=== PATIENT | male | born 1980 | race Caucasian/White ===

== ENCOUNTER 2016-07-31 10:50 | Inpatient (IN) | payer OTHER ==
[2016-07-31 11:23] VITALS: BMI 32.8
--- NOTE | 2016-07-31 13:48 | HP ---
COWS - Scale Resting Pulse: 1= OR 81-100 Sweatin= Chills/Flushing Restless Observation: 3= Extraneous Movement Pupil Size: 2= Moderately Dilated Bone or Joint Aches: 4=Acute Joint/Muscle Pain Runny Nose/ Eye Tearin= Runny Nose/Eyes GI Upset > 30mins: 2= Nausea/Diarrhea Tremor Observation: 2= Slight Tremor Visible Yawning Observation: 2= >3x During Session Anxiety or Irritability: 1=Feels Anxious/Irritable Goose Flesh Skin: 0=Smooth Skin COWS Score: 20 Admission [facility] Chief Complaint: DETOX TX FOR HEROIN DEPENDENCE Allergies/Adverse Reactions: Allergies Allergy/AdvReac Type Severity Reaction Status Date / Time iodine Allergy Intermediate Difficulty Verified 01/24/16 13:44 Breathing shellfish derived Allergy Intermediate Difficulty Verified 07/31/16 13:14 Breathing Iodine Allergy Intermediate Difficulty Uncoded 01/24/16 13:44 Breathing History of Present Illness: 36 Y/O MALE WITH A HX OF HEROIN AND MARIJUANA DEPENDENCE SEEKING DETOX TX. PT STATES HE IS ON RX VALIUM 10 MG TID AND DENIES ABUSE. ALSO TAKES LAMICTAL AND AMBIEN(FOR SLEEP). Exam Limitations: No Limitations - Ebola screening Have you traveled outside of the country in the last 21 days: No Have you had contact with anyone from an Ebola affected area: No Have you been sick,other than usual withdrawal symptoms: No Do you have a fever: No - Review of Systems Constitutional: Chills, Night Sweats, Changes in sleep EENT: reports: Blurred Vision (WEARS GLASSES), Tearing, Nose Congestion, Dental Problems (CAVITIES IN THE PAST) Respiratory: reports: No Symptoms reported Cardiac: reports: No Symptoms Reported GI: reports: Diarrhea, Nausea, Vomiting : reports: No Symptoms Reported Musculoskeletal: reports: Back Pain, Joint Pain, Muscle Pain Integumentary: reports: Bruising (DUE TO IVDU ON BOTH INNER ELBOWS) Neuro: reports: No Symptoms reported Endocrine: reports: No Symptoms Reported Hematology: reports: No Symptoms Reported Psychiatric: reports: Orientated x3, Anxious, Depressed (ON MED FOR DEPRESSION) Other Systems: Reviewed and Negative Patient History - Patient Medical History Hx Anemia: No Hx Asthma: No Hx Chronic Obstructive Pulmonary Disease (COPD): No Hx Cancer: No Hx Cardiac Disorders: No Hx Congestive Heart Failure: No Hx Hypertension: No Hx Hypercholesterolemia: No Hx Pacemaker: No HX Cerebrovascular Accident: No Hx Seizures: No Hx Diabetes: No Hx Gastrointestinal Disorders: No Hx Liver Disease: No Hx Genitourinary Disorders: No Hx Sexually Transmitted Disorders: No Hx Renal Disease (ESRD): No Hx Thyroid Disease: No Hx Human Immunodeficiency Virus (HIV): No (negative) Hx Hepatitis C: No Hx Depression: Yes (ON MED) Hx Suicide Attempt: No (DENIES) Hx Bipolar Disorder: No Hx Schizophrenia: No Other Medical History: INSOMNIA - Patient Surgical History Past Surgical History: Yes Hx Neurologic Surgery: No Hx Cataract Extraction: No Hx Cardiac Surgery: No Hx Lung Surgery: No Hx Breast Surgery: No Hx Breast Biopsy: No Hx Abdominal Surgery: No Hx Appendectomy: No Hx Cholecystectomy: Yes (2008) Hx Genitourinary Surgery: No Hx Section: No Hx Orthopedic Surgery: Yes (spinal fusion 2009) Anesthesia Reaction: No - PPD History Previous Implant?: Yes Documented Results: Negative w/o proof Implanted On Prior R Admission?: Yes Date: 01/26/16 (NOT READ) Results: TO BE DONE PPD to be Administered?: Yes - Reproductive History Patient is a Female of Child Bearing Age (11 -55 yrs old): No (MALE) - Smoking Cessation Smoking history: Current every day smoker Have you smoked in the past 12 months: Yes Aproximately how many cigarettes per day: 10 Hx Chewing Tobacco Use: No Initiated information on smoking cessation: Yes 'Breaking Loose' booklet given: 07/31/16 - Substance & Tx. History Hx Alcohol Use: No (DENIES) Hx Substance Use: Yes (HEROIN/MARIJUANA) Substance Use Type: Heroin, Marijuana, Tranquilizers (RX--DENIES ABUSING IT.) Hx Substance Use Treatment: Yes ([facility]-DETOX) - Substances Abused Heroin Route: Injection Frequency: Daily Amount used: 15 BAGS Age of first use: 24 Date of Last Use: 07/31/16 Marijuana/Hashish Route: Smoking Frequency: 1-3 times last 30 days Amount used: EIGHTH OF WEED Age of first use: 14 Date of Last Use: 07/17/16 VALIUM Route: Oral Frequency: Daily Amount used: 30MG Age of first use: 35 Date of Last Use: 07/31/16 Family Disease History - Family Disease History Family Disease History: Heart Disease: Father, [place]: Grandparent (alcohol abuse and dependence), Other: Grandparent Admission Physical Exam [facility] - Vital Signs Vital Signs: Vital Signs - 24 hr 07/31/16 11:21 Temperature 97.1 F L Pulse Rate 87 Respiratory 18 Rate Blood Pressure 122/73 - Physical General Appearance: Yes: Moderate Distress, Irritable, Anxious HEENTM: Yes: EOMI, Normocephalic, GALA, Pharynx Normal Respiratory: Yes: Chest Non-Tender, Lungs Clear, Normal Breath Sounds, No Respiratory Distress Neck: Yes: Supple, Trachea in good position Breast: Yes: Breast Exam Deferred Cardiology: Yes: Regular Rhythm, Regular Rate, S1, S2 Abdominal: Yes: Normal Bowel Sounds, Non Tender, Soft, Protuberent Genitourinary: Yes: Other Back: Yes: Within Normal Limits Musculoskeletal: Yes: full range of Motion, Gait Steady Extremities: Yes: Normal Range of Motion, Non-Tender Neurological: Yes: district director II-XII NML intact, Fully Oriented, Alert Integumentary: Yes: Dry, Warm, Track [place] (BOTH ANTECUBITAL SPACE) Lymphatic: Yes: Within Normal Limits - Diagnostic (1) Lower back pain Current Visit: Yes Status: Chronic Qualifiers: Chronicity: unspecified Back pain laterality: unspecified (2) Nicotine dependence Current Visit: Yes Status: Chronic Qualifiers: Nicotine product type: cigarettes Substance use status: uncomplicated Qualified Code(s): F17.210 - Nicotine dependence, cigarettes, uncomplicated (3) Opioid dependence with withdrawal Current Visit: Yes Status: Acute (4) Cannabis dependence, uncomplicated Current Visit: Yes Status: Acute (5) Sedative, hypnotic or anxiolytic dependence with withdrawal, uncomplicated Current Visit: Yes Status: Acute Cleared for Admission [facility] - Detox or Rehab [facility] Level of Care: Medically Managed Detox Regimen/Protocol: Methadone/Valium [facility] Breath Alcohol Content Breath Alcohol Content: 0 Urine Drug Screen - Results Drug Screen Negative: No Urine Drug Screen Results: THC-Marijuana, OPI-Opiates, MDMA-Ecstasy, BZO- Benzodiazepines, OXY-Oxycodone
[2016-07-31] MEDS ORDERED: MAG HYDROX/AL HYDROX/SIMETH 30 ML UNIT-DOSE CUP PO PRN (14:00)
[2016-07-31] MEDS ORDERED: P-EPHED 60MG/TRIPROLIDI 2.5MG TABLET PO PRN (14:00)
[2016-07-31] MEDS ORDERED: guaiFENesin/D-METHORPHAN HB 10 ML UNIT-DOSE CUPS PO PRN (14:00)
[2016-07-31] MEDS ORDERED: MAGNESIUM HYDROX 2400MG/30ML ORAL SUSPENSION 30 ML CUP PO PRN (14:00)
[2016-07-31] MEDS ORDERED: diphenhydrAMINE HCL 50 MG CAPSULE PO PRN (14:00)
[2016-07-31] MEDS ORDERED: MENTHOL/PHENOL 1 EACH UD MM PRN (14:00)
[2016-07-31] MEDS ORDERED: IBUPROFEN 400 MG TABLET (FP) PO PRN (14:00)
[2016-07-31] MEDS ORDERED: MAGNESIUM CITRATE 300 ML BOTTLE PO PRN (14:00)
[2016-07-31] MEDS ORDERED: hydrOXYzine PAMOATE 25 MG CAPSULE (FP) PO PRN (14:00)
[2016-07-31] MEDS ORDERED: NICOTINE POLACRILEX 2 MG GUM BUC PRN (14:00)
[2016-07-31] MEDS ORDERED: LOPERAMIDE HCL 2 MG CAPSULE PO PRN (14:00)
[2016-07-31] MEDS ORDERED: ACETAMINOPHEN 325 MG TABLET (FP) PO PRN (14:00)
[2016-07-31] MEDS ORDERED: diazePAM 5 MG TABLET PO ONE (15:17)
[2016-07-31] MEDS ORDERED: METHADONE HCL 10 MG TABLET (FOR DETOX USE ONLY) PO ONE ×2 (15:18→23:00)
[2016-07-31] MEDS: NICOTINE 14 MG/24 HOURS TOPICAL PATCH TD SCH (15:52)
[2016-07-31] MEDS: diazePAM 5 MG TABLET PO SCH ×2 (15:52→22:24)
[2016-07-31] MEDS: diazePAM 5 MG TABLET PO PRN (20:50)
[2016-07-31 20:54] LABS: URINE APPEARANCE CLEAR; URINE BILIRUBIN NEGATIVE (NEGATIVE); URINE BLOOD NEGATIVE (NEGATIVE); URINE COLOR LTYELLOW; URINE GLUCOSE (UA) NEGATIVE (NEGATIVE); URINE KETONE NEGATIVE (NEGATIVE); URINE LEUK ESTERASE NEGATIVE (NEGATIVE); URINE NITRITE NEGATIVE (NEGATIVE); URINE PROTEIN NEGATIVE (NEGATIVE); URINE UROBILINOGEN NEGATIVE E.U./dl (0.2-1.0)
[2016-07-31] MEDS ORDERED: THIAMINE HCL 100 MG TABLET (FP) PO SCH (22:00)
[2016-08-01] MEDS: diazePAM 5 MG TABLET PO SCH (05:34)
[2016-08-01] MEDS: diazePAM 5 MG TABLET PO PRN (09:13)
[2016-08-01] MEDS ORDERED: METHADONE HCL 10 MG TABLET (FOR DETOX USE ONLY) PO SCH (10:00)
[2016-08-01] MEDS ORDERED: PRENATAL VITAMINS W/ FOLIC ACID TABLET (FP) PO SCH (10:00)
[2016-08-01 10:04] VITALS: BP 123/68; PULSE 74; TEMP 97.9
[2016-08-01 10:35] LABS: MCH 30.9 pg (25.7-33.7); MCHC 34.4 g/dl (32.0-35.9); MEAN CELL VOLUME 89.7 fl (80-96); MEAN PLT VOLUME 8.5 fl (7.5-11.1); PLATELET COUNT 198 K/MM3 (134-434); RDW 13.2 % (11.9-15.9); WHITE BLOOD COUNT 8.1 K/mm3 (4.0-10.0)
[2016-08-01 10:39] LABS: ALBUMIN 4.2 g/dl (3.4-5.0); ALK PHOS 86 U/L (45-117); ANION GAP 7 (8-16); BILIRUBIN,TOTAL 0.2 mg/dL (0.2-1.0); CO2 28 mmol/L (21-32); CREATININE 0.9 mg/dL (0.7-1.3); GLUCOSE,RANDOM 91 mg/dL (74-106); SGOT/AST 14 U/L (15-37); SGPT/ALT 27 U/L (12-78); TOT PROT 7.3 g/dl (6.4-8.2)
[2016-08-01] MEDS: NICOTINE 14 MG/24 HOURS TOPICAL PATCH TD SCH (10:43)
--- NOTE | 2016-08-01 11:51 | EKG ---
Test Reason : Blood Pressure : / mmHG Vent. Rate : 069 BPM Atrial Rate : 069 BPM P-R Int : 184 ms QRS Dur : 098 ms QT Int : 382 ms P-R-T Axes : 052 032 009 degrees QTc Int : 409 ms NORMAL SINUS RHYTHM NORMAL ECG NO PREVIOUS ECGS AVAILABLE Confirmed by JOSE GUADALUPE CONNOR, WILLI ([id number]) on 08/01/2016 11:51:00 AM Referred By: Nick CHOWDHURY Confirmed By:WILLI SHI MD
--- NOTE | 2016-08-01 12:38 | DS ---
[facility] Detox Discharge Summary Admission Date: 07/31/16 Discharge Date: 08/01/16 - History Present History: Cannabis Dependence, Opioid Dependence, Sedative Dependence - Physical Exam Results Vital Signs: Vital Signs Temperature 97.9 F 08/01/16 10:04 Pulse Rate 74 08/01/16 10:04 Respiratory Rate 16 08/01/16 10:04 Blood Pressure 123/68 08/01/16 10:04 O2 Sat by Pulse Oximetry (%) - Treatment Hospital Course: Detox Protocol Followed - Medication Discharge Medications: Ambulatory Orders Lamotrigine [Lamictal -] 200 mg PO DAILY 01/24/16 Zolpidem Tartrate [Ambien] 10 mg PO HS 07/31/16 - Diagnosis (1) Cannabis dependence, uncomplicated Current Visit: Yes Status: Chronic (2) Opioid dependence with withdrawal Current Visit: Yes Status: Chronic (3) Sedative, hypnotic or anxiolytic dependence with withdrawal, uncomplicated Current Visit: Yes Status: Chronic (4) Lower back pain Current Visit: Yes Status: Chronic Qualifiers: Chronicity: unspecified Back pain laterality: unspecified (5) Nicotine dependence Current Visit: Yes Status: Chronic Qualifiers: Nicotine product type: cigarettes Substance use status: uncomplicated Qualified Code(s): F17.210 - Nicotine dependence, cigarettes, uncomplicated - AMA Did Patient Leave Against Medical Advice: Yes (pt wants to leave doesn't want detox -feels good.)
[2016-08-02] MEDS ORDERED: diazePAM 5 MG TABLET PO SCH (10:00)
[2016-08-02] MEDS ORDERED: METHADONE HCL 5 MG TABLET (FOR DETOX USE ONLY) PO SCH (10:00)
[2016-08-04] MEDS ORDERED: METHADONE HCL 10 MG TABLET (FOR DETOX USE ONLY) PO SCH (10:00)
[2016-08-04] MEDS ORDERED: diazePAM 5 MG TABLET PO SCH (10:00)
[2016-08-05] MEDS ORDERED: METHADONE HCL 5 MG TABLET (FOR DETOX USE ONLY) PO SCH (06:00)
== END 2016-08-01 13:00 | disposition left against medical advice (07) | DRG 894 ==
LOC: YASAS 10:50 → Y6N 15:11
PROVIDERS: ADMIT Internal Medicine Addiction Medicine; ATTEND Internal Medicine Addiction Medicine
PROC: HZ2ZZZZ Detoxification Services for Substance Abuse Treatment (ICD-10-PCS; principal; 2016-07-31)
DX: F11.23 Opioid dependence with withdrawal (principal); F13.230 Sedative, hypnotic or anxiolytic dependence with withdrawal, uncomplicated; F12.20 Cannabis dependence, uncomplicated; F17.210 Nicotine dependence, cigarettes, uncomplicated; M54.5 Low back pain; G47.00 Insomnia, unspecified
CPT/HCPCS: 36415; 80053; 81003; 85027; 86593; 93005; 93010

== ENCOUNTER 2017-08-28 18:57 | Observation (INO) | payer OTHER ==
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
[2017-08-28 19:35] VITALS: TEMP 99; BMI 22.5
[2017-08-28 21:23] LABS: BASO % 0.4 % (0-2.0); EOS % 0.9 % (0-4.5); HEMOGLOBIN 14.4 GM/dL (11.7-16.9); LYMPH % 21.5 % (8-40); MCH 28.9 pg (25.7-33.7); MCHC 33.6 g/dl (32.0-35.9); MEAN CELL VOLUME 85.9 fl (80-96); MONO % 9.1 % (3.8-10.2); NEUT % 68.1 % (42.8-82.8); PLATELET COUNT 356 K/MM3 (134-434); RDW 13.8 % (11.9-15.9); WHITE BLOOD COUNT 13.9 K/mm3 (4.0-10.0)
[2017-08-28 21:37] LABS: INR 1.21 (0.82-1.09); PROTHROMBIN TIME (PATIENT) 13.7 SEC (9.98-11.88)
[2017-08-28 22:06] LABS: ALBUMIN 4.4 g/dl (3.4-5.0); ANION GAP 10 (8-16); BILIRUBIN,TOTAL 0.9 mg/dL (0.2-1.0); BLOOD UREA NITROGEN 11 mg/dL (7-18); CALCIUM 9.5 mg/dL (8.5-10.1); CHLORIDE 107 mmol/L (98-107); CO2 22 mmol/L (21-32); CREATININE 0.9 mg/dL (0.7-1.3); GLUCOSE,RANDOM 139 mg/dL (74-106); POTASSIUM 3.8 mmol/L (3.5-5.1); SGOT/AST 56 U/L (15-37); SGPT/ALT 113 U/L (12-78); SODIUM 139 mmol/L (136-145); TOT PROT 8.7 g/dl (6.4-8.2)
[2017-08-28 22:08] LABS: ALK PHOS 115 U/L (45-117)
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
[2017-08-28] MEDS ORDERED: PIPERACILLIN/TAZOB 4.5 GM/100 ML PREMIX BAG IVPB ONE (23:35)
[2017-08-28] MEDS ORDERED: PIPERACILLIN/TAZOB 4.5 GM 4.5 GM in DEXTROSE 5%-WATER - 100 ML IVPB ONE (23:45)
[2017-08-29] MEDS ORDERED: VANCOMYCIN 1,000 MG in DEXTROSE 5%-WATER - 250 ML IVPB ONE (00:35)
[2017-08-29] MEDS ORDERED: PIPERACILLIN/TAZOB 4.5 GM 4.5 GM/100 ML BAG IVPB ONE (00:38)
[2017-08-29] MEDS ORDERED: diphenhydrAMINE HCL 25 MG CAPSULE (FP) PO ONE ×2 (01:25→01:30)
[2017-08-29] MEDS ORDERED: ACETAMINOPHEN 325 MG TABLET (FP) PO PRN (01:42)
--- NOTE | 2017-08-29 01:50 | PN ---
Teaching Attending Note Name of Resident: Marshall Garibay ATTENDING PHYSICIAN STATEMENT I saw and evaluated the patient. I reviewed the resident's note and discussed the case with the resident. I agree with the resident's findings and plan as documented. SUBJECTIVE:pt signed out AMA prior to my assessment
[2017-08-29] MEDS ORDERED: chlordiazePOXIDE HCL 25 MG CAPSULE PO PRN (01:59)
[2017-08-29] MEDS ORDERED: METHADONE HCL 10 MG TABLET PO ONE ×2 (01:59→22:00)
--- NOTE | 2017-08-29 02:30 | HP ---
CHIEF COMPLAINT: Pain, redness and swelling of both upper extremities PCP: Dr. SUÁREZ HISTORY OF PRESENT ILLNESS: Patient is a 37 yo m w/ PMH IVDA (5 bags of heroin per day, last use ~1.5 weeks ago) who comes into the ED c/o b/l arm pain and swelling for the past 1 day. Patient states that he went into [facility] for detox, then left due to a family emergency. Later on today, at approx. 6pm, the patient states he noticed redness , swelling and pain in both of his arms b/l with the right being worse than the left. Patient also c/o nausea. Patient expresses to desire to be discharged to detox at [facility]. Patient denies CP, SOB, fevers, chills, abdominal pain, diarrhea, constipation ER course was notable for: (1) Vancomycin x1, zosyn x1 (2) US of both UE negative for DVT (3) XR of both arms negative for foreign body Recent Travel: none PAST MEDICAL HISTORY: none PAST SURGICAL HISTORY: spinal fusion in 2009 Social History: Smokin-2 cigarettes per week Alcohol: denies Drugs: Heroin use, injected. Pt uses 5 bags per day Family History: non contributory Allergies iodine Allergy (Intermediate, Verified 08/28/17 19:30) Difficulty Breathing shellfish derived Allergy (Intermediate, Verified 08/28/17 19:30) Difficulty Breathing Iodine Allergy (Intermediate, Uncoded 01/24/16 13:44) Difficulty Breathing HOME MEDICATIONS: Home Medications Medication Instructions Recorded NK [No Known Home Medication] 08/28/17 REVIEW OF SYSTEMS CONSTITUTIONAL: Absent: fever, chills, diaphoresis, generalized weakness, malaise, loss of appetite, weight change HEENT: Absent: rhinorrhea, nasal congestion, throat pain, throat swelling, difficulty swallowing, mouth swelling, ear pain, eye pain, visual changes CARDIOVASCULAR: Absent: chest pain, syncope, palpitations, irregular heart rate, lightheadedness , peripheral edema RESPIRATORY: Absent: cough, shortness of breath, dyspnea with exertion, orthopnea, wheezing, stridor, hemoptysis GASTROINTESTINAL: Absent: abdominal pain, abdominal distension, nausea, vomiting, diarrhea, constipation, melena, hematochezia GENITOURINARY: Absent: dysuria, frequency, urgency, hesitancy, hematuria, flank pain, genital pain MUSCULOSKELETAL: Absent: myalgia, arthralgia, joint swelling, back pain, neck pain SKIN: Absent: itching, pallor HEMATOLOGIC/IMMUNOLOGIC: Absent: easy bleeding, easy bruising, lymphadenopathy, frequent infections ENDOCRINE: Absent: unexplained weight gain, unexplained weight loss, heat intolerance, cold intolerance NEUROLOGIC: Absent: headache, focal weakness or paresthesias, dizziness, unsteady gait, seizure, mental status changes, bladder or bowel incontinence PSYCHIATRIC: Absent: anxiety, depression, suicidal or homicidal ideation, hallucinations. PHYSICAL EXAMINATION Vital Signs - 24 hr 08/28/17 19:31 Temperature 99.0 F Pulse Rate 99 H Respiratory 20 Rate Blood Pressure 0/0 O2 Sat by Pulse 100 Oximetry (%) GENERAL: Awake, alert, and fully oriented. Patient appears diaphoretic with mild psychomotor agitation HEAD: Normal with no signs of trauma. EYES: Pupils equal, round and reactive to light, pupils dilated. LUNGS: Breath sounds equal, clear to auscultation bilaterally. No wheezes, and no crackles. No accessory muscle use. HEART: Regular rate and rhythm, normal S1 and S2 without murmur, rub or gallop. ABDOMEN: Soft, nontender, not distended, normoactive bowel sounds, no guarding, no rebound, no masses. No hepatomegaly or splenomegaly. MUSCULOSKELETAL: Normal range of motion at all joints. No bony deformities or tenderness. No CVA tenderness. UPPER EXTREMITIES: 2+ pulses, warm, well-perfused. No cyanosis. No clubbing. No peripheral edema. LOWER EXTREMITIES: 2+ pulses, warm, well-perfused. No calf tenderness. No peripheral edema. NEUROLOGICAL: Cranial nerves II-X intact. Normal speech. PSYCHIATRIC: Cooperative. minimal eye contact. Appropriate mood and affect. SKIN: Multiple erythematous, swollen lesions over both upper extremities. Lesions tender to palpation, warm to the touch and indurated Laboratory Results - last 24 hr 08/28/17 08/28/17 08/28/17 21:06 21:06 21:09 WBC 13.9 H D RBC 5.00 Hgb 14.4 Hct 43.0 MCV 85.9 MCH 28.9 MCHC 33.6 RDW 13.8 Plt Count 356 D MPV 8.0 Neutrophils % 68.1 Lymphocytes % 21.5 Monocytes % 9.1 Eosinophils % 0.9 Basophils % 0.4 ESR PT with INR INR D-Dimer Sodium 139 Potassium 3.8 Chloride 107 Carbon Dioxide 22 D Anion Gap 10 BUN 11 Creatinine 0.9 Creat Clearance w eGFR > 60 Random Glucose 139 H D Lactic Acid 2.0 Calcium 9.5 Total Bilirubin 0.9 D AST 56 H D ALT 113 H D Alkaline Phosphatase 115 D Total Protein 8.7 H Albumin 4.4 08/28/17 08/28/17 08/28/17 21:09 21:09 21:09 WBC RBC Hgb Hct MCV MCH MCHC RDW Plt Count MPV Neutrophils % Lymphocytes % Monocytes % Eosinophils % Basophils % ESR 53 H PT with INR 13.70 H INR 1.21 H D-Dimer 1152 H Sodium Potassium Chloride Carbon Dioxide Anion Gap BUN Creatinine Creat Clearance w eGFR Random Glucose Lactic Acid Calcium Total Bilirubin AST ALT Alkaline Phosphatase Total Protein Albumin ASSESSMENT/PLAN: The patient is a 37 yo m w/ PMH IVDA being admitted for b/l UE cellulitis and abscesses. #UE Cellulitis/abscess -s/p vancomycin, zosyn in ED -vancomycin 1250mg daily -zosyn 3.375 Q6H -ID consult #Heroin dependence -Utox -Detox consult -methadone detox protocol -monitor for signs of withdrawal -COWS score 6 #FEN -no fluids indicated -lytes wnl -regular diet #dispo -admit to med-surg Visit type - Emergency Visit Emergency Visit: Yes Care time: The patient presented to the Emergency Department on the above date and was hospitalized for further evaluation of their emergent condition. - New Patient This patient is new to me today: Yes Date on this admission: 08/29/17 - Critical Care Critical Care patient: No
[2017-08-29] MEDS ORDERED: PIPERACILLIN/TAZOB 3.375 GM 3.375 GM/50 ML BAG IVPB ONE (05:35)
[2017-08-29] MEDS ORDERED: PIPERACILLIN/TAZOB 3.375 GM 3.375 GM in DEXTROSE 5%-WATER - 50 ML IVPB ONE (06:00)
--- NOTE | 2017-08-29 06:25 | HOSP ---
Subjective - Review of Symptoms Subjective: Was paged to the bedside by the nurse because the patient wished to sign out AMA. Explained to the patient the potential risks of leaving including permanent injuries, worsening of his infection, migration of his infection into the bone, possible amputation of the arm as well as possible due to worsening infection. Patient verbalized understanding of the risks of signing out and still wanted to leave. Will send PO ABX to the patient's pharmacy and encouraged him to take them. Physical Examination Vital Signs: Vital Signs Temperature 99.0 F 08/28/17 19:31 Pulse Rate 99 H 08/28/17 19:31 Respiratory Rate 20 08/28/17 19:31 Blood Pressure 0/0 08/28/17 19:31 O2 Sat by Pulse Oximetry (%) 100 08/28/17 19:31 Labs: CBC, BMP 08/28/17 21:06 08/28/17 21:09 Visit type - Emergency Visit Emergency Visit: Yes ED Registration Date: 08/29/17 Care time: The patient presented to the Emergency Department on the above date and was hospitalized for further evaluation of their emergent condition. - New Patient This patient is new to me today: Yes Date on this admission: 08/29/17 - Critical Care Critical Care patient: No
[2017-08-29 06:32] VITALS: BP 124/83; PULSE 90
[2017-08-29 07:12] LABS: EOS % 1.4 % (0-4.5); HEMATOCRIT 41.9 % (35.4-49); LYMPH % 20.4 % (8-40); MCH 28.5 pg (25.7-33.7); MCHC 33.3 g/dl (32.0-35.9); MEAN CELL VOLUME 85.6 fl (80-96); MEAN PLT VOLUME 8.5 fl (7.5-11.1); MONO % 11.2 % (3.8-10.2); PLATELET COUNT 339 K/MM3 (134-434); RBC 4.89 M/mm3 (4.00-5.60); WHITE BLOOD COUNT 13.1 K/mm3 (4.0-10.0)
--- NOTE | 2017-08-29 08:24 | PN ---
Teaching Attending Note Name of Resident: Jasbir Fernandez ATTENDING PHYSICIAN STATEMENT I saw and evaluated the patient. I reviewed the resident's note and discussed the case with the resident. I agree with the resident's findings and plan as documented. SUBJECTIVE: OBJECTIVE: Vital Signs Temperature 99.0 F 08/28/17 19:31 Pulse Rate 90 08/29/17 06:32 Respiratory Rate 16 08/29/17 06:32 Blood Pressure 124/83 08/29/17 06:32 O2 Sat by Pulse Oximetry (%) 99 08/29/17 06:32 CBCD WBC 13.1 K/mm3 (4.0-10.0) H 08/29/17 06:00 RBC 4.89 M/mm3 (4.00-5.60) 08/29/17 06:00 Hgb 14.0 GM/dL (11.7-16.9) 08/29/17 06:00 Hct 41.9 % (35.4-49) 08/29/17 06:00 MCV 85.6 fl (80-96) 08/29/17 06:00 MCHC 33.3 g/dl (32.0-35.9) 08/29/17 06:00 RDW 14.0 % (11.9-15.9) 08/29/17 06:00 Plt Count 339 K/MM3 (134-434) 08/29/17 06:00 MPV 8.5 fl (7.5-11.1) 08/29/17 06:00 CMP Sodium 139 mmol/L (136-145) 08/28/17 21:09 Potassium 3.8 mmol/L (3.5-5.1) 08/28/17 21:09 Chloride 107 mmol/L (98-107) 08/28/17 21:09 Carbon Dioxide 22 mmol/L (21-32) D 08/28/17 21:09 Anion Gap 10 (8-16) 08/28/17 21:09 BUN 11 mg/dL (7-18) 08/28/17 21:09 Creatinine 0.9 mg/dL (0.7-1.3) 08/28/17 21:09 Creat Clearance w eGFR > 60 (>60) 08/28/17 21:09 Random Glucose 139 mg/dL (74-106) H D 08/28/17 21:09 Calcium 9.5 mg/dL (8.5-10.1) 08/28/17 21:09 Total Bilirubin 0.9 mg/dL (0.2-1.0) D 08/28/17 21:09 AST 56 U/L (15-37) H D 08/28/17 21:09 ALT 113 U/L (12-78) H D 08/28/17 21:09 Alkaline Phosphatase 115 U/L (45-117) D 08/28/17 21:09 Total Protein 8.7 g/dl (6.4-8.2) H 08/28/17 21:09 Albumin 4.4 g/dl (3.4-5.0) 08/28/17 21:09 Current Medications Generic Name Dose Route Start Last Admin Trade Name Freq PRN Reason Stop Dose Admin Acetaminophen 650 mg 08/29/17 01:42 Tylenol - PO Q4H PRN PAIN OR FEVER Chlordiazepoxide HCl 25 mg 08/29/17 01:59 Librium - PO 09/01/17 02:00 Q4H PRN WITHDRAWAL(CONT SUBST) Vancomycin HCl 1,250 mg/ 250 mls @ 250 mls/hr 08/29/17 12:00 Dextrose IVPB DAILY [facility] Protocol Piperacillin Sod/Tazobactam 50 mls @ 100 mls/hr 08/29/17 15:00 Sod 3.375 gm/ Dextrose IVPB Q6H-IV NAUN Protocol Methadone HCl 10 mg 08/29/17 22:00 Dolophine - PO 08/29/17 22:01 ONCE@2300 ONE Methadone HCl 20 mg 08/30/17 10:00 Dolophine - PO 08/30/17 10:01 DAILY [facility] Methadone HCl 15 mg 08/31/17 10:00 Dolophine - PO 09/01/17 10:01 DAILY [facility] Methadone HCl 10 mg 09/02/17 10:00 Dolophine - PO 09/02/17 10:01 DAILY [facility] Methadone HCl 5 mg 09/03/17 06:00 Dolophine - PO 09/03/17 06:01 DAILY@0600 [facility] Home Medications Medication Instructions Recorded Clindamycin [Cleocin -] 300 mg PO Q6HPO 14 Days #56 capsule 08/29/17 ASSESSMENT AND PLAN:
[2017-08-29 08:39] LABS: ALBUMIN 4.2 g/dl (3.4-5.0); ALK PHOS 113 U/L (45-117); ANION GAP 12 (8-16); BLOOD UREA NITROGEN 11 mg/dL (7-18); CALCIUM 9.1 mg/dL (8.5-10.1); CHLORIDE 106 mmol/L (98-107); CO2 21 mmol/L (21-32); CREATININE 0.8 mg/dL (0.7-1.3); GLUCOSE,RANDOM 100 mg/dL (74-106); MAGNESIUM 2.4 mg/dL (1.8-2.4); PHOSPHOROUS 4.4 mg/dL (2.5-4.9); POTASSIUM 3.9 mmol/L (3.5-5.1); SGOT/AST 48 U/L (15-37); SGPT/ALT 108 U/L (12-78); SODIUM 139 mmol/L (136-145); TOT PROT 8.3 g/dl (6.4-8.2)
[2017-08-29] MEDS ORDERED: VANCOMYCIN 1,250 MG in DEXTROSE 5%-WATER - 250 ML IVPB SCH (12:00)
[2017-08-29] MEDS ORDERED: PIPERACILLIN/TAZOB 3.375 GM 3.375 GM in DEXTROSE 5%-WATER - 50 ML IVPB SCH (15:00)
--- NOTE | 2017-08-30 02:32 | DS ---
Physical Exam: HOSPITAL COURSE: Date of Admission:08/29/17 Patient is a 37 yo m w/ PMH IVDA (5 bags of heroin per day, last use ~1.5 weeks ago) who came into the ED c/o b/l arm pain and swelling for the past 1 day. Patient states that at approx. 6pm, he noticed redness, swelling and pain in both of his arms b/l with the right being worse than the left. Patient also c/o nausea. In the ED, patient was treated with antibiotics and admitted for further IV ABX and eventual d/c to detox per his request. Prior to his transport upstairs, the patient expressed the desire to sign out AMA. The patient was made aware of the potential risks of leaving including permanent injuries, worsening of his infection, migration of his infection into the bone, possible amputation of the arm as well as possible due to worsening infection. Patient verbalized understanding of the risks of signing out and still wanted to leave. Patient signed AMA papers, had his IV removed and was allowed to leave. PO ABX were sent to the patient's pharmacy and he was encouraged him to take them. He was informed that he was welcome to return to the ER at many time if his symptoms got worse or if he changed his mind. Date of Discharge: 08/30/17 Minutes to complete discharge: 30 Discharge Summary Reason For Visit: CELLULITIS AND ABSCESS OF UPPER ARM/FORE - Instructions Referrals: Danilo Graham MD [Primary Care Provider] - Disposition: AGAINST MEDICAL ADVICE - Home Medications Comprehensive Discharge Medication List: Ambulatory Orders Clindamycin [Cleocin -] 300 mg PO Q6HPO 14 Days #56 capsule 08/29/17 This patient is new to me today: No Emergency Visit: Yes ED Registration Date: 08/29/17 Care time: The patient presented to the Emergency Department on the above date and was hospitalized for further evaluation of their emergent condition. Critical Care patient: No - Discharge Referral Referred to [facility] No
[2017-08-30] MEDS ORDERED: METHADONE HCL 10 MG TABLET PO SCH (10:00)
--- NOTE | 2017-08-30 13:43 | PDOC ---
Patient Follow-up (Call Back) - Post ED Follow - Up Disposition at time of original discharge: AGAINST MEDICAL ADVICE Reason for Call Back: Abnwl. Microbiology (Pt. with two sets of positive blood cultures. Left message on patient number to call back.)
--- NOTE | 2017-08-30 14:04 | CONSULT ---
Consult Detox [facility] - Alcohol/Substance Use Hx Alcohol Use: No Assessment Plan - Plan Plan: Patient discharged prior to completing consultation
[2017-08-31] MEDS ORDERED: METHADONE HCL 5 MG TABLET PO SCH (10:00)
[2017-09-02] MEDS ORDERED: METHADONE HCL 10 MG TABLET PO SCH (10:00)
[2017-09-03] MEDS ORDERED: METHADONE HCL 5 MG TABLET PO SCH (06:00)
== END 2017-08-29 07:02 | disposition left against medical advice (07) ==
LOC: JER 18:57 → JERBED 08-29 00:33 → UNDOADMOB 08-29 01:49
PROVIDERS: ADMIT Internal Medicine; ATTEND Internal Medicine
DX: L03.113 Cellulitis of right upper limb (principal); L02.413 Cutaneous abscess of right upper limb; F11.20 Opioid dependence, uncomplicated
CPT/HCPCS: 36415; 73090-TC-LT-FY; 73090-TC-RT-FY; 80053; 83605; 83735; 84100; 85025; 85379; 85610; 85651; 87040; 87186; 93970-TC; 96365; 96367; 99281-25; G0378

== ENCOUNTER 2017-11-22 14:16 | Emergency (ER) | payer OTHER ==
[2017-11-22] MEDS ORDERED: NALOXONE HCL 0.4 MG/ML VIAL ONE (14:37)
[2017-11-22] MEDS ORDERED: SODIUM CHLORIDE 0.9% 1000 ML INFUS.BAG IV ONE ×2 (14:43→15:02)
[2017-11-22 14:48] VITALS: TEMP 98.5; BMI 33.0
[2017-11-22 14:49] LABS: BASO % 0.3 % (0-2.0); EOS % 0.1 % (0-4.5); HEMATOCRIT 42.3 % (35.4-49); HEMOGLOBIN 14.5 GM/dL (11.7-16.9); LYMPH % 5.7 % (8-40); MCH 30.6 pg (25.7-33.7); MCHC 34.3 g/dl (32.0-35.9); MEAN CELL VOLUME 89.1 fl (80-96); MEAN PLT VOLUME 7.6 fl (7.5-11.1); MONO % 9.7 % (3.8-10.2); NEUT % 84.2 % (42.8-82.8); PLATELET COUNT 306 K/MM3 (134-434); RBC 4.74 M/mm3 (4.00-5.60); RDW 15.2 % (11.9-15.9); WHITE BLOOD COUNT 17.2 K/mm3 (4.0-10.0)
--- NOTE | 2017-11-22 15:01 | PDOC ---
Attending Attestation - HPI HPI: 11/22/17 15:42 The patient is a 37 year old male, with a significant PMH of IVDA, who presents to the emergency department with lethargy and aphasia beginning this morning. As per the patients friend present at bedside, the patient was noted to drink a bottle of tequila last night and shoot up an unknown substance possibly cocaine at 5 am. She states that this morning the patient was noted to have slurred speech and complaining that he was unable to express the correct words. She also reports the patient was complaining of blurred vision and that he had difficulty seeing. She reports the patient was last seen normal at 6 am. At presentation, the patient is complaining of not being able to find the right words. The patient denies chest pain, shortness of breath. He denies fever, chills, nausea, vomiting, diarrhea. Allergies: iodine, shellfish derived. - Physicial Exam PE: 11/22/17 15:42 Vitals: Triage vital signs reviewed General Appearance: No acute distress, well nourished, well developed Head: Atraumatic Eyes: (+) Pin point pupils. Ears: TM's normal bilaterally Nose: Nares patent bilaterally; no nasal congestion Throat: Posterior oropharynx without erythema, mucous membranes moist Neck: Supple; No nuchal rigidity Chest Wall: Nontender Cardiac: Regular rate and rhythm, no murmurs, no rubs, no gallops Lungs: Clear to auscultation bilateral, good air movement bilaterally Abdomen: Soft, nondistended, normal bowel sounds, nontender to palpation Rectal: Exam deferred Extremities: Full range of motion to all extremities, no cyanosis, clubbing, or edema Skin: Warm and dry, no rashes or lesions, no rash, no petechiae Neuro: (+) Slurred speech. Cranial Nerves 2-12 grossly intact, Strength intact to all extremities, Sensation intact to all extremities. Psych: Normal mood, normal affect - Medical Decision Making 11/22/17 15:44 The patient is a 37 year old male, with a significant PMH of IVDA, who presents to the emergency department with lethargy and aphasia beginning this morning. Plan: Labs, Head CT w/out contrast, Meds. Documentation prepared by Sonny Jimenez, acting as medical records tech for Ozzy Strong MD. <Sonny Jimenez - Last Filed: 11/22/17 15:46> - Resident Resident Name: Julián Mcgregor - ED Attending Attestation I have performed the following: I have examined & evaluated the patient, The case was reviewed & discussed with the resident, I agree w/resident's findings & plan, Exceptions are as noted - Medical Decision Making Patient brought into the emergency department by his call friends secondary to persistent slurred speech and problems with vision starting at approximately 5: 30 this am after injecting cocaine and heroin. Patient and girlfriend thought that the symptoms would improve but when they did not came to the emergency department this afternoon Patient initially spoke to staff saying do not give me Narcan however given timeline and persistence of slurred speech decision made by JULIANNA Trevino to trial Narcan to see if improvement in symptomatology to delineate symptoms of substance abuse from CVA/neurologic symptoms Narcan given with improvement in slurred speech and vision Reevaluation laboratory analysis notable for elevated white count of 17.5. Given that patient is IV drug user blood cultures ordered vancomycin ordered decision made to admit patient to rule out bacteremia/endocarditis No murmur appreciated on exam at this time. Patient states he will not stay overnight in the hospital and will sign out AMA Patient was placed on a one-to-one to allow time for him to sober up such that he is of clear mind and clinically sober when he makes a decision to sign out AMA. Girlfriend at bedside I will observe the patient until he is sober and re discuss the risks and benefits of leaving the hospital against AMA Reevaluation: Despite multiple attempts I am unable to convince the patient to stay despite the serious risks of leaving the hospital against medical advise. The patient is presenting with IVDU and Leukocytosis. I am concerned that this may be endocarditis or bacteremia. The patient has verbalized understanding of my concerns. The patient is clinically sober and appears free from distracting injury. The patient appears to have intact insight, judgment, and reason. In my opinion, this patient has the capacity to make decisions The risks of leaving against medical advice without further evaluation treatment were discussed with the patient. These risks include severe infection , endocarditis, , permanant disability. The patient indicated understanding of these risks and appeared to have the capacity to make this decision. The patient is unwilling to stay for a IV antibiotics, an echo, infectious disease consultation, follow up with his blood cultures. Sent is unwilling to remain for additional monitoring. He is refusing further care and leaving against medical advice I'm unable to convince the patient to stay. I have observed the patient in the emergency department for 3 1/2 hours to ensure he is clinically sober, in making this decision. I have spent greater than 1 hour at the patient's bedside and has had 4 separate conversations with the patient regarding the risks and benefits of leaving AGAINST MEDICAL ADVICE. I have tried to convince both the patient and his girlfriend of the dangers of leaving without additional medical care. Despite my best efforts I have been unable to convince the patient and his girlfriend to stay in the hospital for further medical care. I have asked the patient to return as soon as possible to complete his/ her evaluation. I have spoken to the on-call infectious disease health and safety consultant and there is no indication for by mouth antibiotics as at this time it is unclear what the origin of the leukocytosis. Patient needs the results of blood cultures as well as results of the echo in order to rule out endocarditis. Patient has refused an x-ray and urinalysis there is no clinical evidence of pneumonia on the patient's exam. Based on review from up-to-date empiric treatment for endocarditis not necessary without return of positive blood cultures to confirm dx. Given patient with no fever no murmur no other systemic signs and symptoms, there is no appropriate PO antibiotic for the treatment of endocarditis. I will have to rely on the patient returning if his blood cultures are positive and at this time without additional workup Patient has now been observed in the emergency department for 4-1/2 hours. He is clinically sober and free of distracting injury. He has no slurred speech no sustained nystagmus and steady gait. I have again informed the patient of the risks of leaving AGAINST MEDICAL ADVICE including or permanent disability from endocarditis or possible infection. He again refuses to stay for admission IV antibiotics echo and further management I advised the patient he can return to the emergency department at any time. Findings, need for follow-up and strict return instructions discussed with patient. <Ozzy Strong - Last Filed: 11/22/17 19:39>
--- NOTE | 2017-11-22 15:34 | PDOC ---
History of Present Illness - General History Source: Patient Exam Limitations: No Limitations - History of Present Illness Initial Comments: 11/22/17 15:33 The patient is a 37M with a PMH of IVDA with polysubstance abuse who presents to the ER with lethargy and aphasia. The patient cannot provide much history. His girlfriend is present and provides most of the history. The patient had last used drugs around 0500 this morning and was normal before then. Since 0500 he has had difficulty finding words and been very lethargic. This prompted them to come to the ER. He denies any fever, chills, nausea, vomiting, diarrhea, constipation. He states that he injected cocaine and did not use heroine. <Julián Mcgregor - Last Filed: 11/22/17 17:05> <Ozzy Strong - Last Filed: 11/22/17 18:28> - General Chief Complaint: Lethargy Stated Complaint: CVA/TIA Time Seen by Provider: 11/22/17 14:38 Past History - Past Medical History Anemia: No Asthma: No Cancer: No Cardiac Disorders: No CVA: No COPD: No CHF: No Diabetes: No GI Disorders: No Disorders: No HTN: No Hypercholesterolemia: No Kidney Stones: No Liver Disease: No Seizures: No Thyroid Disease: No - Surgical History Abdominal Surgery: No Appendectomy: No Cardiac Surgery: No Cholecystectomy: Yes (2008) Lung Surgery: No Neurologic Surgery: No Orthopedic Surgery: Yes (spinal fusion 2009) - Reproductive History Testicular Surgery: No - Suicide/Smoking/Psychosocial Hx Smoking History: Unknown if ever smoked Have you smoked in the past 12 months: No Number of Cigarettes Smoked Daily: 10 Information on smoking cessation initiated: No 'Breaking Loose' booklet given: 07/31/16 Hx Alcohol Use: Yes Drug/Substance Use Hx: Yes Substance Use Type: Marijuana, Tranquilizers, Heroin Hx Substance Use Treatment: Yes ([facility]) <Julián Mcgregor - Last Filed: 11/22/17 17:05> <Ozzy Strong - Last Filed: 11/22/17 18:28> - Past Medical History Allergies/Adverse Reactions: Allergies Allergy/AdvReac Type Severity Reaction Status Date / Time iodine Allergy Intermediate Difficulty Verified 08/28/17 19:30 Breathing shellfish derived Allergy Intermediate Difficulty Verified 08/28/17 19:30 Breathing Iodine Allergy Intermediate Difficulty Uncoded 01/24/16 13:44 Breathing Home Medications: Ambulatory Orders Clindamycin [Cleocin -] 300 mg PO Q6HPO 14 Days #56 capsule 08/29/17 Review of Systems - Review of Systems Able to Perform ROS?: No (clinical condition) Is the patient limited Thai proficient: No <Julián Mcgregor - Last Filed: 11/22/17 17:05> *Physical Exam - Vital Signs Last Vital Signs Temp Pulse Resp BP Pulse Ox 98.5 F 90 16 121/79 97 11/22/17 14:43 11/22/17 15:06 11/22/17 14:43 11/22/17 14:43 11/22/17 15:06 - Physical Exam Comments: 11/22/17 15:34 GENERAL: Well developed, well nourished. Awake and alert. No acute distress. HEENT: Normocephalic, atraumatic. Hearing grossly normal. Moist mucous membranes. PERRLA, EOMI. No conjunctival pallor. Sclera are non-icteric. Pinpoint pupils, not reactive to light. NECK: Supple. Full ROM. CARDIOVASCULAR: Regular rate and rhythm. No murmurs, rubs, or gallops. PULMONARY: No evidence of respiratory distress. Lungs clear to auscultation bilaterally. No wheezing, rales or rhonchi. ABDOMINAL: Soft. Non-tender. Non-distended. No rebound or guarding. MUSCULOSKELETAL: Track [place] and needle injection sites noted on b/l forearms. Normal range of motion at all joints. No bony deformities or tenderness. EXTREMITIES: No cyanosis. No clubbing. No edema. No calf tenderness. SKIN: Warm and dry. Normal capillary refill. No rashes. No jaundice. NEUROLOGICAL: Alert, awake, appropriate. Cranial nerves 2-12 intact. Abnormal speech. PSYCHIATRIC: Cooperative. Good eye contact. Appropriate mood and affect. <Julián Mcgregor - Last Filed: 11/22/17 17:05> - Vital Signs Last Vital Signs Temp Pulse Resp BP Pulse Ox 98.5 F 82 16 107/64 95 11/22/17 14:43 11/22/17 15:52 11/22/17 15:52 11/22/17 15:52 11/22/17 15:52 <Ligia,Ozzy - Last Filed: 11/22/17 18:28> ED Treatment Course - LABORATORY CBC & Chemistry Diagram: 11/22/17 14:41 11/22/17 14:41 - ADDITIONAL ORDERS Additional order review: Laboratory Results 11/22/17 11/22/17 14:41 14:34 POC Glucometer 134.05978 Alcohol, Quantitative Cancelled 11/22/17 11/22/17 14:41 14:34 RBC 4.74 MCV 89.1 MCHC 34.3 RDW 15.2 MPV 7.6 D Neutrophils % 84.2 H D Lymphocytes % 5.7 L D Monocytes % 9.7 Eosinophils % 0.1 D Basophils % 0.3 POC Glucometer 134.82505 - RADIOLOGY Radiology Studies Ordered: Category Date Time Status HEAD CT WITHOUT CONTRAST [CT] Stat CT Scan 11/22/17 14:39 Taken - Medications Given in the ED: ED Medications Discontinued Medications Generic Name Dose Route Start Last Admin Trade Name Freq PRN Reason Stop Dose Admin Sodium Chloride 1,000 ml 11/22/17 14:43 11/22/17 15:12 Normal Saline - IV 11/22/17 14:44 1,000 ml ONCE ONE Administration Sodium Chloride 2,000 ml 11/22/17 15:02 11/22/17 15:12 Normal Saline - IV 11/22/17 15:03 2,000 ml ONCE ONE Administration <Julián Mcgregor - Last Filed: 11/22/17 17:05> - LABORATORY CBC & Chemistry Diagram: 11/22/17 14:41 11/22/17 14:41 - ADDITIONAL ORDERS Additional order review: Laboratory Results 11/22/17 11/22/17 11/22/17 14:41 14:41 14:34 Sodium 142 Potassium 4.4 Chloride 106 Carbon Dioxide 27 D Anion Gap 9 BUN 19 H D Creatinine 1.4 H D Creat Clearance w eGFR 56.72 POC Glucometer 134.08340 Random Glucose 131 H D Calcium 9.2 Total Bilirubin 0.5 D AST 27 D ALT 29 D Alkaline Phosphatase 88 D Creatine Kinase 205 Creatine Kinase Index 0.9 CK-MB (CK-2) 2.009 Troponin I < 0.02 Total Protein 8.2 Albumin 4.7 Alcohol, Quantitative Cancelled < 5.0 11/22/17 11/22/17 14:41 14:34 RBC 4.74 MCV 89.1 MCHC 34.3 RDW 15.2 MPV 7.6 D Neutrophils % 84.2 H D Lymphocytes % 5.7 L D Monocytes % 9.7 Eosinophils % 0.1 D Basophils % 0.3 POC Glucometer 134.05726 - Medications Given in the ED: ED Medications Discontinued Medications Generic Name Dose Route Start Last Admin Trade Name Ayesha PRN Reason Stop Dose Admin Vancomycin HCl 1,000 mg/ 250 mls @ 250 mls/hr 11/22/17 16:16 11/22/17 16:20 Dextrose IVPB 11/22/17 17:15 250 mls/hr ONCE ONE Administration Protocol Sodium Chloride 1,000 ml 11/22/17 14:43 11/22/17 15:12 Normal Saline - IV 11/22/17 14:44 1,000 ml ONCE ONE Administration Sodium Chloride 2,000 ml 11/22/17 15:02 11/22/17 15:12 Normal Saline - IV 11/22/17 15:03 2,000 ml ONCE ONE Administration <Ozzy Strong - Last Filed: 11/22/17 18:28> Medical Decision Making - Medical Decision Making 11/22/17 15:36 The patient is a 37M with a PMH of IVDA who presents to the ER lethargic and cannot find his words. The patient and his girlfriend state that his last known well is 0500 and he is outside the window of a code marie, although I have a very low suspicion for a stroke. However, I do believe that the patient is not being honest regarding his drug use or may have inadvertently used heroine instead of cocaine. CT head is negative on preliminary read. Pending official read and labs. Pt will be given 0.4 of narcan and monitored closely. 11/22/17 16:15 Pt is improving with speech. However, White count noticed of 17. Cr of 1.4 which is new from 0.8 from August. Will give IV abx (vanc) and get blood cx and UA. 11/22/17 16:27 Pt's speech is improving but he is refusing CXR. He will take the IV abx. 11/22/17 17:05 Pt's speech has improved. IV Vanc running. He is requesting to AMA. 1:1 sitter outside room. <Julián Mcgregor - Last Filed: 11/22/17 17:05> *DC/Admit/Observation/Transfer <Julián Mcgregor - Last Filed: 11/22/17 17:05> - Discharge Dispostion Decision to Admit order: No <Ozzy Strong - Last Filed: 11/22/17 18:28> Diagnosis at time of Disposition: Leukocytosis Qualifiers: Leukocytosis type: other Qualified Code(s): D72.828 - Other elevated white blood cell count - Discharge Dispostion Disposition: AGAINST MEDICAL ADVICE Condition at time of disposition: Guarded - Referrals Referrals: Danilo Graham MD [Primary Care Provider] - - Patient Instructions Additional Instructions: You are signing out from the emergency department AGAINST MEDICAL ADVICE. Your workup here in the emergency department has demonstrated an elevated white blood cell count and given your history of intravenous drug use we are very concerned that he may have an infection in your blood or heart. This can result in and permanent disability. You have been advised on multiple occasions to stay in the hospital for admission IV antibiotics further imaging and consultation which you have refused. You have demonstrated to understand these risks of leaving and despite multiple attempts have decided to leave the hospital AGAINST MEDICAL ADVICE. You are advised to return to the emergency Department immediately should you change you mind. We will follow up blood cultures and call you for any positive results. Please have your phone nearby as this may be the difference between life and . - Post Discharge Activity
[2017-11-22 15:53] VITALS: BP 107/64; PULSE 82
[2017-11-22 16:00] LABS: ALBUMIN 4.7 g/dl (3.4-5.0); ANION GAP 9 (8-16); BILIRUBIN,TOTAL 0.5 mg/dL (0.2-1.0); BLOOD UREA NITROGEN 19 mg/dL (7-18); CALCIUM 9.2 mg/dL (8.5-10.1); CHLORIDE 106 mmol/L (98-107); CO2 27 mmol/L (21-32); CREATININE 1.4 mg/dL (0.7-1.3); GLUCOSE,RANDOM 131 mg/dL (74-106); POTASSIUM 4.4 mmol/L (3.5-5.1); SGOT/AST 27 U/L (15-37); SGPT/ALT 29 U/L (12-78); SODIUM 142 mmol/L (136-145); TOT PROT 8.2 g/dl (6.4-8.2)
[2017-11-22 16:07] LABS: ALK PHOS 88 U/L (45-117)
[2017-11-22] MEDS ORDERED: VANCOMYCIN 1,000 MG in DEXTROSE 5%-WATER - 250 ML IVPB ONE (16:16)
[2017-11-22] MEDS ORDERED: VANCOMYCIN 1 GRAM (PRE-DOCKED) 1,000 MG/250 ML BAG IVPB ONE (16:28)
--- NOTE | 2017-11-27 16:07 | EKG ---
Test Reason : Blood Pressure : / mmHG Vent. Rate : 093 BPM Atrial Rate : 093 BPM P-R Int : 134 ms QRS Dur : 092 ms QT Int : 340 ms P-R-T Axes : 045 018 022 degrees QTc Int : 422 ms NORMAL SINUS RHYTHM POSSIBLE LEFT ATRIAL ENLARGEMENT LEFT VENTRICULAR HYPERTROPHY ABNORMAL ECG WHEN COMPARED WITH ECG OF 31-JUL-2016 16:06, NO SIGNIFICANT CHANGE WAS FOUND Confirmed by WILLI SHI MD ([id number]) on 11/27/2017 4:06:43 PM Referred By: Confirmed By:WILLI SHI MD
== END 2017-11-22 18:41 | disposition left against medical advice (07) ==
LOC: JER 14:16
DX: D72.829 Elevated white blood cell count, unspecified (principal)
CPT/HCPCS: 36415; 70450-TC; 80053; 80307; 82550; 82553; 82962; 84484; 85025; 87040; 93005; 93010; 96365; 99285-25; J7030

== ENCOUNTER 2021-07-19 08:07 | Emergency (ER) | payer OTHER ==
[2021-07-19 08:53] VITALS: BP 121/77; PULSE 66; TEMP 98.4; BMI 41.3
[2021-07-20 18:07] LABS: SARS-CoV-2 NAA Not Detected (Not Detected)
== END 2021-07-19 10:49 | disposition home or self-care (01) ==
LOC: JER 08:07
DX: M79.10 Myalgia, unspecified site (principal)
CPT/HCPCS: 87804; 87807; 99283-25; C9803; U0003; U0005

== ENCOUNTER 2021-07-21 08:26 | Emergency (ER) | payer OTHER ==
[2021-07-21 08:43] VITALS: BP 114/70; PULSE 99; TEMP 98.1; BMI 41.3
== END 2021-07-21 09:54 | disposition home or self-care (01) ==
LOC: JER 08:26
DX: B34.9 Viral infection, unspecified (principal)
CPT/HCPCS: 71046-TC-FY; 99284-25